=== PATIENT | male | born 1980 | race Caucasian/White ===

== ENCOUNTER 2020-12-07 00:05 | Emergency (ER) | payer SELFPAY ==
[~2020-12-07] VITALS: Ht 170.2 cm; Wt 91.0 kg
[2020-12-07] MEDS ORDERED: TETANUS, DIPHTHERIA, PERTUSSIS VAC/PF 0.5ML (>7YR OLD) IM ONE (00:45)
[2020-12-07] MEDS ORDERED: BACITRACIN ZINC OINT UDPKT TOP ONE (00:45)
[2020-12-07] MEDS ORDERED: LIDOCAINE HCL/EPINEPHRINE 1%-EPI 1:100,000 20 ML VIAL INFIL ONE (00:45)
[2020-12-07] MEDS ORDERED: ACETAMINOPHEN WITH CODEINE 300/30MG TABLET PO ONE (00:45)
[2020-12-07] MEDS ORDERED: BO1 TP (02:20)
[2020-12-07 02:30] VITALS: BP 122/85
== END 2020-12-07 02:35 | disposition home or self-care (01) ==
LOC: ER 00:05
DX: S51.811A Laceration without foreign body of right forearm, initial encounter (principal); Y08.89XA Assault by other specified means, initial encounter; Y93.89 Activity, other specified; Y92.9 Unspecified place or not applicable
CPT/HCPCS: 12001; 90471; 90715; 99283; J3490; Z7610